=== PATIENT | female | born 1935 | race Caucasian/White ===

== ENCOUNTER 2016-03-06 12:46 | Emergency (ER) | payer MEDICARE ==
[2016-03-06] MEDS ORDERED: diazePAM 5 MG TABLET PO STA (13:56)
[2016-03-06] MEDS ORDERED: diazePAM 5 MG TABLET PO ONE (13:57)
== END 2016-03-06 14:18 | disposition home or self-care (01) ==
DX: M54.5 Low back pain (principal); G89.29 Other chronic pain; M19.90 Unspecified osteoarthritis, unspecified site; I10 Essential (primary) hypertension; Z79.82 Long term (current) use of aspirin
CPT/HCPCS: 99283; A9270

== ENCOUNTER 2016-06-02 12:51 | Outpatient (CLI) | payer MEDICARE | END 2016-06-02 12:52 | disposition home or self-care (01) | DX: E78.5 Hyperlipidemia, unspecified (principal) ==

== ENCOUNTER 2016-07-26 11:50 | Outpatient (CLI) | payer MEDICARE | END 2016-07-26 11:51 | disposition home or self-care (01) | LOC: EMS 11:50 | PROVIDERS: ATTEND Surgery | DX: R55 Syncope and collapse (principal) | CPT/HCPCS: A0425; A0427 ==

== ENCOUNTER 2016-07-26 12:27 | Emergency (ER) | payer MEDICARE ==
[2016-07-26 14:40] LABS: BASOPHILS # (AUTO) 0.1 10^3/uL (0.0-0.1); BASOPHILS % (AUTO) 0.7 %; EOSINOPHILS # (AUTO) 0.1 10^3/uL (0.0-0.7); EOSINOPHILS % (AUTO) 0.9 %; HGB - HEMOGLOBIN 14.8 g/dL (12.0-16.0); LYMPHOCYTES # (AUTO) 1.5 10^3/uL (1.5-3.5); LYMPHOCYTES % (AUTO) 16.6 %; MEAN CORPUSCULAR HEMOGLOBIN 34.7 pg (27.0-31.0); MEAN CORPUSCULAR HGB CONC 34.4 g/dL (32.0-36.0); MEAN PLATELET VOLUME 10.4 fL (7.9-10.8); MONOCYTES # (AUTO) 0.8 10^3/uL (0.0-1.0); MONOCYTES % (AUTO) 8.3 %; NEUTROPHILS # (AUTO) 6.8 10^3/uL (1.5-6.6); NEUTROPHILS % (AUTO) 73.5 %; RED BLOOD COUNT 4.26 10^6/uL (4.20-5.40); RED CELL DISTRIBUTION WIDTH 13.5 % (12.0-15.0); UNCORRECTED WHITE BLOOD COUNT 9.3 x10^3/uL; WHITE BLOOD COUNT 9.3 x10^3/uL (4.8-10.8)
[2016-07-26 14:48] LABS: CALCIUM 9.9 mg/dL (8.5-10.3); CREATININE 0.8 mg/dL (0.4-1.0); POTASSIUM 4.5 mmol/L (3.5-5.0)
--- NOTE | 2016-07-26 14:56 | ED Physician Documentation ---
History of Present Illness - Stated complaint Stated Complaint: NEAR SYNCOPE - Chief complaint Chief Complaint: Neuro - Additonal information Additional information: hx from pt 80 female hx HTN and abn EKG multiple episodes of near syncope today - she describes as less than a minute each feeling a cold wash over her, no CP or SOA or palp had sore throat and congestion yesterday better now no new meds except a benadryl yesterday Review of Systems Constitutional: denies: Fever, Chills Throat: reports: Sore throat (not now) Cardiac: denies: Chest pain / pressure, Palpitations Respiratory: denies: Dyspnea GI: denies: Abdominal Pain, Nausea, Vomiting Neurologic: reports: Near syncope. denies: Generalized weakness, Syncope, Altered mental status, Headache Endocrine: denies: Easy bruising / bleeding Immunocompromised: denies: Immunocompromised PD PAST MEDICAL HISTORY - Past Medical History Past Medical History: Yes Cardiovascular: Hypertension, High cholesterol Respiratory: None Neuro: None Endocrine/Autoimmune: None GI: None : None HEENT: None Psych: None Musculoskeletal: Osteoarthritis Derm: None - Past Surgical History Past Surgical History: Yes HEENT: Tonsil/Adenoidectomy - Present Medications Home Medications: Ambulatory Orders Medication Instructions Recorded Confirmed Aspirin [Children's Aspirin] 81 mg PO DAILY 10/26/12 07/26/16 Metoprolol Succinate 75 mg PO DAILY 01/06/15 07/26/16 Multivitamin [Multi-Vitamin Daily] 1 tab PO DAILY 01/06/15 07/26/16 Atorvastatin [Lipitor] 20 mg ORAL DAILY 01/20/15 07/26/16 - Allergies Allergies/Adverse Reactions: Allergies Allergy/AdvReac Type Severity Reaction Status Date / Time Phenothiazines Allergy Mild Respiratory Verified 01/20/15 13:50 captopril Allergy Anaphylaxis Verified 01/20/15 13:50 - Social History Does the pt smoke?: No Smoking Status: Never smoker Does the pt drink ETOH?: Yes Does the pt have substance abuse?: No - Immunizations Immunizations are current?: Yes - POLST Patient has POLST: No PD ED PE NORMAL - Vitals Vital signs reviewed: Yes - General General: Alert and oriented X 3 - HEENT HEENT: PERRL - Neck Neck: Supple, no meningeal sign - Cardiac Cardiac: RRR - Respiratory Respiratory: No respiratory distress - Abdomen Abdomen: Soft, Non tender - Derm Derm: Normal color - Extremities Extremities: No deformity - Neuro Neuro: Alert and oriented X 3, credit card interviewer 2-12 intact, No motor deficit, No sensory deficit Results - Vitals Vitals: Vital Signs - 24 hr 07/26/16 07/26/16 07/26/16 12:15 13:01 15:16 Temperature 36.3 C L Heart Rate 91 66 60 Respiratory 16 18 16 Rate Blood Pressure 187/90 H 174/83 H 166/77 H O2 Saturation 95 97 96 07/26/16 16:43 Temperature Heart Rate 64 Respiratory 16 Rate Blood Pressure 171/83 H O2 Saturation 97 Oxygen O2 Source Room air - EKG (time done) 1441 Rate: Rate (enter#) Rhythm: NSR Ischemia: Other (deep TWI precordial leads with ST depr V3-V5) Compare to prior EKG: Unchanged from prior EKG (2014 ) - Labs Labs: Laboratory Tests 07/26/16 07/26/16 07/26/16 12:50 12:50 12:50 WBC 9.3 RBC 4.26 Hgb 14.8 Hct 43.0 MCV 101.0 H MCH 34.7 H MCHC 34.4 RDW 13.5 Plt Count 234 MPV 10.4 Neut # 6.8 H Lymph # 1.5 [place] # 0.8 Eos # 0.1 Baso # 0.1 Absolute Nucleated RBC 0.00 Nucleated RBCs 0.0 Sodium 135 Potassium 4.5 Chloride 98 L Carbon Dioxide 30 Anion Gap 7.0 BUN 15 Creatinine 0.8 Estimated GFR (MDRD) 69 L Glucose 161 H Calcium 9.9 Troponin I < 0.04 TSH 07/26/16 12:50 WBC RBC Hgb Hct MCV MCH MCHC RDW Plt Count MPV Neut # Lymph # Traill # Eos # Baso # Absolute Nucleated RBC Nucleated RBCs Sodium Potassium Chloride Carbon Dioxide Anion Gap BUN Creatinine Estimated GFR (MDRD) Glucose Calcium Troponin I TSH 1.77 Departure - Departure Disposition: 01 Home, Self Care Clinical Impression: Near syncope Condition: Good Instructions: ED Near Syncope Unkn Follow-Up: Stacy Spencer PA-C [Primary Care Provider] - Comments: Your EKG is abnormal but unchanged from prior EKG. Your labs were fine You did not have any major heart rhythm abnormalities during your ER stay even though you had another episode. And now you are feeling a bit better So I think it is safe for you to go home Please follow up with your PMD for a recheck this week and to discuss getting an echocardiogram Return if worse It is probably best not to drive for the next few days Also your blood pressure was high - please follow up with your PMD
[2016-07-26 16:44] VITALS: BP 171/83
== END 2016-07-26 17:08 | disposition home or self-care (01) ==
LOC: EDUNIT# → ED 12:27
DX: R55 Syncope and collapse (principal); I10 Essential (primary) hypertension; E78.00 Pure hypercholesterolemia, unspecified; M19.90 Unspecified osteoarthritis, unspecified site; Z79.82 Long term (current) use of aspirin
CPT/HCPCS: 36415; 80048; 84443; 84484; 85025; 93005; 93010; 99284

== ENCOUNTER 2017-09-06 08:44 | Outpatient (CLI) | payer MEDICARE ==
[2017-09-06 12:07] LABS: BASOPHILS % (AUTO) 0.4 %; EOSINOPHILS # (AUTO) 0.3 10^3/uL (0.0-0.7); EOSINOPHILS % (AUTO) 3.8 %; HGB - HEMOGLOBIN 14.7 g/dL (12.0-16.0); LYMPHOCYTES # (AUTO) 2.5 10^3/uL (1.5-3.5); LYMPHOCYTES % (AUTO) 37.4 %; MEAN CORPUSCULAR HEMOGLOBIN 34.3 pg (27.0-31.0); MEAN CORPUSCULAR VOLUME 103.8 fL (81.0-99.0); MONOCYTES # (AUTO) 0.7 10^3/uL (0.0-1.0); MONOCYTES % (AUTO) 9.8 %; NEUTROPHILS # (AUTO) 3.3 10^3/uL (1.5-6.6); NEUTROPHILS % (AUTO) 48.6 %; PLT - PLATELET COUNT 252 10^3/uL (130-450); RED BLOOD COUNT 4.29 10^6/uL (4.20-5.40); RED CELL DISTRIBUTION WIDTH 13.4 % (12.0-15.0); WHITE BLOOD COUNT 6.8 x10^3/uL (4.8-10.8)
[2017-09-06 12:24] LABS: ALBUMIN 3.9 g/dL (3.2-5.5); ALBUMIN/GLOBULIN RATIO 1.3 (1.0-2.2); ALKALINE PHOSPHATASE 59 IU/L (42-121); ALT ALANINE AMINOTRANSFERASE 20 IU/L (10-60); AST ASPARTATE AMINOTRANSFERASE 28 IU/L (10-42); BILIRUBIN,TOTAL 1.2 mg/dL (0.2-1.0); BUN - BLOOD UREA NITROGEN 12 mg/dL (6-20); CALCIUM 9.4 mg/dL (8.5-10.3); CARBON DIOXIDE - CO2 32 mmol/L (21-32); CHLORIDE 96 mmol/L (101-111); CHOL/HDL RATIO 2.5 (<4.4); CHOLESTEROL 172 mg/dL; CREATININE 0.9 mg/dL (0.4-1.0); GFR - MDRD 60 (>89); GLUCOSE 120 mg/dL (70-100); HDL CHOLESTEROL 68 mg/dL; LDL CHOLESTEROL,CALCULATED 76 mg/dL; LDL/HDL RATIO 1.1 (<4.4); SODIUM 136 mmol/L (135-145); VLDL CHOLESTEROL 28 mg/dL
[2017-09-06 15:22] LABS: HB2 TOTAL 16.7 g/dL; HEMOGLOBIN A1C 0.66 g/dL; HEMOGLOBIN A1C % 5.8 % (4.6-6.2)
== END 2017-09-06 08:45 | disposition home or self-care (01) ==
LOC: LAB.F 08:44
PROVIDERS: ATTEND Physician Assistant Medical
DX: I10 Essential (primary) hypertension (principal); E78.00 Pure hypercholesterolemia, unspecified; E78.5 Hyperlipidemia, unspecified
CPT/HCPCS: 36415; 80053; 80061; 83036; 83721; 85025

== ENCOUNTER 2017-09-18 08:46 | Outpatient (CLI) | payer MEDICARE | END 2017-09-18 08:47 | disposition home or self-care (01) | LOC: LAB.F 08:46 | PROVIDERS: ATTEND Physician Assistant Medical | DX: L85.3 Xerosis cutis (principal); L65.9 Nonscarring hair loss, unspecified | CPT/HCPCS: 36415; 84443 ==

== ENCOUNTER 2017-09-25 12:48 | Outpatient (CLI) | payer MEDICARE ==
--- NOTE | 2017-09-25 15:48 | DEXA Report ---
Procedure Date: 09/25/2017 Accession Number: [id number] / [id number] Procedure: DEX - Dexa Spine and/or Hip CPT Code: FULL RESULT: EXAM: Dexa Spine and/or Hip DATE: 09/25/2017 1:37 PM CLINICAL HISTORY: ENCOUNTER FOR SCREENING FOR OSTEOPOROSIS TECHNIQUE: Dual energy x-ray absorptiometry (DXA) was performed on a In[employer] System. Regions measured are the AP Spine, femoral neck, and if needed forearm. COMPARISON: None. In accordance with the International Society for Clinical Densitometry (ISCD) guidelines, data from previous exams may be reanalyzed using current recommendations and techniques. This is done to allow a more accurate basis for comparison with the current study. FINDINGS: The data for the lumbar spine is as follows: BMD (g/cm/cm) T-SCORE Z-SCORE REGION L1 1.132 0.0 1.4 L2 1.361 1.3 2.7 L3 1.488 2.4 3.8 L4 1.525 2.7 4.1 TOTAL 1.391 1.8 3.1 NOTE: All evaluable vertebrae are used for classification The data for the hip is as follows: BMD (g/cm/cm) T-SCORE Z-SCORE REGION Neck 0.970 -0.5 1.3 TOTAL 1.090 0.7 2.3 NOTE: The femoral neck or total proximal femur, whichever is lowest, is used for classification. IMPRESSION: THE WHO CLASSIFICATION BASED ON THE INTERNATIONAL REFERENCE STANDARD IS NORMAL. THE FRACTURE RISK IS NOT INCREASED. RECOMMENDATION: Patients with diagnosis of osteoporosis or osteopenia should have regular bone mineral density assessment. For those eligible for Medicare, routine testing is allowed once every 2 years. Testing frequency can be increased for patients who have rapidly progressing disease or for those who are receiving medical therapy to restore bone mass. COMMENT: World Health Organization (WHO) definitions for osteoporosis and osteopenia: NORMAL BMD: T-score at -1.0 or higher, fracture risk is low OSTEOPENIA BMD: T-score between -1.0 and -2.5, fracture risk is increased. OSTEOPOROSIS BMD: T-score at -2.5 or lower, fracture risk is high. National Osteoporosis Foundation recommends: 1. Obtain adequate dietary calcium (at least 1200 mg per day) and vitamin D (400-800 international units per day). 2. Participate, as appropriate, in regular weightbearing and muscle-strengthening exercise. 3. Avoid tobacco use and reduce alcohol and caffeine intake. 4. For more detailed information see the website at www.NOF.org.
== END 2017-09-25 12:49 | disposition home or self-care (01) ==
LOC: DI 12:48
PROVIDERS: ATTEND Physician Assistant Medical
DX: Z13.820 Encounter for screening for osteoporosis (principal)
CPT/HCPCS: 77080

== ENCOUNTER 2019-03-18 11:28 | Outpatient (CLI) | payer MEDICARE ==
[2019-03-18 17:44] LABS: BASOPHILS % (AUTO) 0.4 %; EOSINOPHILS # (AUTO) 0.1 10^3/uL (0.0-0.7); EOSINOPHILS % (AUTO) 1.4 %; HGB - HEMOGLOBIN 15.4 g/dL (12.0-16.0); LYMPHOCYTES # (AUTO) 3.1 10^3/uL (1.5-3.5); LYMPHOCYTES % (AUTO) 34.5 %; MEAN CORPUSCULAR HEMOGLOBIN 35.2 pg (27.0-31.0); MEAN CORPUSCULAR HGB CONC 32.9 g/dL (32.0-36.0); MEAN CORPUSCULAR VOLUME 107.1 fL (81.0-99.0); MEAN PLATELET VOLUME 11.7 fL (7.9-10.8); MONOCYTES # (AUTO) 0.7 10^3/uL (0.0-1.0); MONOCYTES % (AUTO) 7.1 %; NEUTROPHILS # (AUTO) 5.1 10^3/uL (1.5-6.6); NEUTROPHILS % (AUTO) 56.2 %; PLT - PLATELET COUNT 260 10^3/uL (130-450); RED BLOOD COUNT 4.37 10^6/uL (4.20-5.40); RED CELL DISTRIBUTION WIDTH 13.5 % (12.0-15.0); WHITE BLOOD COUNT 9.1 x10^3/uL (4.8-10.8)
[2019-03-18 18:31] LABS: ALBUMIN 4.3 g/dL (3.2-5.5); ALBUMIN/GLOBULIN RATIO 1.4 (1.0-2.2); ALKALINE PHOSPHATASE 60 IU/L (42-121); ALT ALANINE AMINOTRANSFERASE 17 IU/L (10-60); AST ASPARTATE AMINOTRANSFERASE 25 IU/L (10-42); BILIRUBIN,TOTAL 1.3 mg/dL (0.2-1.0); BUN - BLOOD UREA NITROGEN 14 mg/dL (6-20); CALCIUM 9.5 mg/dL (8.5-10.3); CARBON DIOXIDE - CO2 30 mmol/L (21-32); CHLORIDE 97 mmol/L (101-111); CHOL/HDL RATIO 2.5 (<4.4); CHOLESTEROL 189 mg/dL; CREATININE 0.8 mg/dL (0.4-1.0); GFR - MDRD 69 (>89); GLUCOSE 139 mg/dL (70-100); HDL CHOLESTEROL 76 mg/dL; LDL CHOLESTEROL,CALCULATED 92 mg/dL; LDL/HDL RATIO 1.2 (<4.4); SODIUM 137 mmol/L (135-145); TOTAL PROTEIN 7.4 g/dL (6.7-8.2); VLDL CHOLESTEROL 21 mg/dL
[2019-03-18 19:41] LABS: HB2 TOTAL 15.5 g/dL; HEMOGLOBIN A1C 0.58 g/dL; HEMOGLOBIN A1C % 5.6 % (4.6-6.2)
== END 2019-03-18 11:29 | disposition home or self-care (01) ==
LOC: LAB.S 11:28
PROVIDERS: ATTEND Physician Assistant Medical
DX: I10 Essential (primary) hypertension (principal); E78.5 Hyperlipidemia, unspecified; R73.01 Impaired fasting glucose
CPT/HCPCS: 36415; 80053; 80061; 83036; 83721; 85025

== ENCOUNTER 2021-03-11 13:33 | Outpatient (CLI) | payer MEDICARE | END 2021-03-11 13:34 | disposition critical access hospital (66) | LOC: EMS 13:33 | DX: R53.1 Weakness (principal); K59.00 Constipation, unspecified | CPT/HCPCS: A0425; A0429 ==

== ENCOUNTER 2021-03-11 14:41 | Emergency (ER) | payer MEDICARE ==
[2021-03-11 15:07] LABS: BASOPHILS % (AUTO) 0.3 %; EOSINOPHILS # (AUTO) 0.1 10^3/uL (0.0-0.7); EOSINOPHILS % (AUTO) 0.7 %; HCT - HEMATOCRIT 35.4 % (37.0-47.0); HGB - HEMOGLOBIN 11.6 g/dL (12.0-16.0); LYMPHOCYTES # (AUTO) 2.1 10^3/uL (1.5-3.5); LYMPHOCYTES % (AUTO) 18.5 %; MEAN CORPUSCULAR HEMOGLOBIN 30.8 pg (27.0-31.0); MEAN CORPUSCULAR HGB CONC 32.8 g/dL (32.0-36.0); MEAN CORPUSCULAR VOLUME 93.9 fL (81.0-99.0); MEAN PLATELET VOLUME 9.7 fL (7.9-10.8); MONOCYTES # (AUTO) 1.3 10^3/uL (0.0-1.0); MONOCYTES % (AUTO) 11.4 %; NEUTROPHILS # (AUTO) 7.9 10^3/uL (1.5-6.6); NEUTROPHILS % (AUTO) 68.8 %; PLT - PLATELET COUNT 565 10^3/uL (130-450); RED BLOOD COUNT 3.77 10^6/uL (4.20-5.40); RED CELL DISTRIBUTION WIDTH 17.7 % (12.0-15.0); WHITE BLOOD COUNT 11.5 x10^3/uL (4.8-10.8)
[2021-03-11 15:19] LABS: ALBUMIN 2.9 g/dL (3.2-5.5); ALBUMIN/GLOBULIN RATIO 0.7 (1.0-2.2); BILIRUBIN,TOTAL 0.5 mg/dL (0.2-1.0); CALCIUM 9.5 mg/dL (8.5-10.3); CREATININE 0.7 mg/dL (0.4-1.0); POTASSIUM 4.2 mmol/L (3.5-5.0)
--- NOTE | 2021-03-11 15:48 | ED Physician Documentation ---
History of Present Illness - Stated complaint Stated Complaint: WEAKNESS - Chief complaint Chief Complaint: Abd Pain - Additonal information Additional information: 85-year-old female presents to the emergency department for evaluation of pr ogressive weakness that has been occurring over the last month. Patient reports that after ambulating even short distances she feels very weak in her arms and legs. She denies any exertional chest pain but does feel short of breath after walking. There has been no fainting episodes no leg swelling. She denies any dysuria urgency or frequency. No cough or fevers. Fully vaccinated for COVID-19. Past medical history is most significant for hypertension for which she takes metoprolol as well as atorvastatin and a daily aspirin. Review of Systems Constitutional: denies: Fever, Chills Nose: reports: Reviewed and negative Throat: reports: Reviewed and negative Cardiac: reports: Reviewed and negative Respiratory: reports: Dyspnea. denies: Cough GI: reports: Reviewed and negative : reports: Reviewed and negative Skin: reports: Reviewed and negative Musculoskeletal: reports: Reviewed and negative PD PAST MEDICAL HISTORY - Past Medical History Cardiovascular: Hypertension, High cholesterol Respiratory: None Endocrine/Autoimmune: None GI: None : None HEENT: None Psych: None Musculoskeletal: Osteoarthritis Derm: None - Past Surgical History Past Surgical History: Yes HEENT: Tonsil/Adenoidectomy - Present Medications Home Medications: Ambulatory Orders Medication Instructions Recorded Confirmed Aspirin [Children's Aspirin] 81 mg PO DAILY 10/26/12 07/26/16 Metoprolol Succinate 75 mg PO DAILY 01/06/15 07/26/16 Multivitamin [Multi-Vitamin Daily] 1 tab PO DAILY 01/06/15 07/26/16 Atorvastatin [Lipitor] 20 mg ORAL DAILY 01/20/15 07/26/16 - Allergies Allergies/Adverse Reactions: Allergies Allergy/AdvReac Type Severity Reaction Status Date / Time Phenothiazines Allergy Mild Respiratory Verified 01/20/15 13:50 captopril Allergy Anaphylaxis Verified 01/20/15 13:50 - Social History Does the pt smoke?: No Smoking Status: Never smoker Does the pt drink ETOH?: Yes Does the pt have substance abuse?: No - Immunizations Immunizations are current?: Yes - POLST Patient has POLST: No PD ED PE NORMAL - General General: Alert and oriented X 3, No acute distress - HEENT HEENT: PERRL - Neck Neck: Supple, no meningeal sign, No adenopathy - Cardiac Cardiac: RRR, No murmur - Respiratory Respiratory: No respiratory distress, Clear bilaterally - Abdomen Abdomen: Normal bowel sounds, Soft, Non tender - Back Back: No CVA TTP, No spinal TTP - Derm Derm: Normal color, Warm and dry - Extremities Extremities: No deformity - Neuro Neuro: Alert and oriented X 3, parquet floor layer 2-12 intact, No motor deficit, No sensory deficit, Normal speech, Other (Motor strength 5/5 in bilateral lower extremities against resistance. Motor strength 5 of 5 in bilateral upper extremities against resistance.) Eye Opening: Spontaneous Motor: Obeys Commands Verbal: Oriented GCS Score: 15 - Psych Psych: Normal mood Results - Vitals Vitals: Vital Signs - 24 hr 03/11/21 03/11/21 15:04 17:06 Temperature 36.4 C L Heart Rate 75 74 Respiratory 22 21 Rate Blood Pressure 147/95 H 173/81 H O2 Saturation 96 96 Oxygen O2 Source Room air - EKG (time done) 1456 Rate: Rate (enter#) (74) Rhythm: NSR [place]: Normal Intervals: Normal NE QRS: Normal Ischemia: Q waves (V1V2 unchanged), T wave inversion (V2-V6b UNCHANED) Compare to prior EKG: Unchanged from prior EKG Computer interpretation: Agree with computer - Labs Labs: Laboratory Tests 03/11/21 03/11/21 03/11/21 14:58 14:58 14:58 WBC 11.5 H RBC 3.77 L Hgb 11.6 L Hct 35.4 L MCV 93.9 MCH 30.8 MCHC 32.8 RDW 17.7 H Plt Count 565 H MPV 9.7 Neut # (Auto) 7.9 H Lymph # (Auto) 2.1 Ness # (Auto) 1.3 H Eos # (Auto) 0.1 Baso # (Auto) 0.0 Absolute Nucleated RBC 0.00 Nucleated RBC % 0.0 Sodium 131 L Potassium 4.2 Chloride 91 L Carbon Dioxide 28 Anion Gap 12.0 BUN 12 Creatinine 0.7 Estimated GFR (MDRD) 80 L Glucose 140 H Calcium 9.5 Total Bilirubin 0.5 AST 116 H ALT 61 H Alkaline Phosphatase 585 H Troponin I High Sens 13.5 B-Natriuretic Peptide Total Protein 7.0 Albumin 2.9 L Globulin 4.1 Albumin/Globulin Ratio 0.7 L Lipase 39 Urine Color Urine Clarity Urine pH Ur Specific [place] Urine Protein Urine Glucose (UA) Urine Ketones Urine Occult Blood Urine Nitrite Urine Bilirubin Urine Urobilinogen Ur Leukocyte Esterase Ur Microscopic Review Urine Culture Comments 03/11/21 03/11/21 14:58 17:20 WBC RBC Hgb Hct MCV MCH MCHC RDW Plt Count MPV Neut # (Auto) Lymph # (Auto) Ness # (Auto) Eos # (Auto) Baso # (Auto) Absolute Nucleated RBC Nucleated RBC % Sodium Potassium Chloride Carbon Dioxide Anion Gap BUN Creatinine Estimated GFR (MDRD) Glucose Calcium Total Bilirubin AST ALT Alkaline Phosphatase Troponin I High Sens B-Natriuretic Peptide 297 H Total Protein Albumin Globulin Albumin/Globulin Ratio Lipase Urine Color YELLOW Urine Clarity CLEAR Urine pH 6.0 Ur Specific [place] <=1.005 Urine Protein NEGATIVE Urine Glucose (UA) NEGATIVE Urine Ketones NEGATIVE Urine Occult Blood NEGATIVE Urine Nitrite NEGATIVE Urine Bilirubin NEGATIVE Urine Urobilinogen 0.2 (NORMAL) Ur Leukocyte Esterase NEGATIVE Ur Microscopic Review NOT INDICATED Urine Culture Comments NOT INDICATED - Rads (name of study) CXR Radiology: Final report received (No acute cardiopulmonary process) CT abd/pelvis Radiology: Final report received (Hepatomegaly with extensive hypodense lesions scattered throughout the parenchyma suggestive of extensive liver metastasis. No bowel obstruction. At least 2 solid appearing nodule seen in bilateral lung bases concerning for pulmonary metastatic disease) PD MEDICAL DECISION MAKING - ED course Complexity details: reviewed results, re-evaluated patient, considered differential, d/w patient ED course: 85-year-old female presents emergency department for evaluation of progressive weakness as well as some dyspnea especially after ambulating. Screening labs today were most significant for elevated liver function tests new from her known baseline of normal. Chest x-ray was without acute finding but a CT of the abdomen did show likely pulmonary metastasis to the liver. There is fairly extensive disease burden. This finding was discussed with the patient at the bedside unfortunately she will require referral to oncology for further evaluation and management. Emergent worrisome return precautions were discussed. Departure - Departure Disposition: 01 Home, Self Care Clinical Impression: Liver metastases, Generalized weakness Pulmonary metastasis Qualifiers: Laterality: bilateral Qualified Code(s): C78.01 - Secondary malignant neoplasm of right lung; C78.02 - Secondary malignant neoplasm of left lung Condition: Stable Record reviewed to determine appropriate education?: Yes Follow-Up: Galindo Taylor MD [Credentialed Staff Provider] - Comments: Ann you are seen in the emergency department today for feeling generally weak as well as some weight loss. Unfortunately as we discussed at the bedside your labs and imaging today show that you have significant cancer. 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 It is very important that your primary doctor make a referral for you to oncology. There are good treatment options available for people that do have cancer including metastatic cancer like yours so I do not want you to lose hope until you speak with the oncologist. It is going to be important that you see an oncologist within the next few weeks. No new medications needed to be added today. It is important that you stay well-hydrated. If you have any fainting episodes, black or bloody stools, develop any fevers then you are to return immediately to the ER for a second look. I wish you well in your journey.
--- NOTE | 2021-03-11 16:17 | XRAY Report ---
PROCEDURE: Chest 1 View X-Ray INDICATIONS: chest pain TECHNIQUE: One view of the chest was acquired. COMPARISON: 08/27/2012. FINDINGS: Surgical changes and devices: None. Lungs and pleura: No pleural effusions or pneumothorax. Lungs are clear. Elevated right hemidiaphra gm is stable compared to the prior exam. Previously identified opacity in the posterior aspect of the right lung bases is not identified by single AP view of the chest. Mediastinum: Mediastinal contours appear normal. Heart size is normal. Bones and chest wall: No suspicious bony lesions. Overlying soft tissues appear unremarkable. IMPRESSION: No acute cardiopulmonary disease process. Reviewed by: Toña Palafox MD, PhD on 03/11/2021 4:15 PM PST Approved by: Toña Palafox MD, PhD on 03/11/2021 4:15 PM PST Station ID: [id number]
[2021-03-11] MEDS ORDERED: iohexoL-300 100 ML VIAL ONE (16:32)
[2021-03-11 17:38] LABS: BILIRUBIN,URINE NEGATIVE (NEGATIVE); GLUCOSE, URINE (UA) NEGATIVE (NEGATIVE); KETONES,URINE (UA) NEGATIVE (NEGATIVE); LEUKOCYTE ESTERASE, URINE NEGATIVE (NEGATIVE); NITRITE,URINE NEGATIVE (NEGATIVE); OCCULT BLOOD,URINE NEGATIVE (NEGATIVE); PROTEIN,URINE NEGATIVE (NEGATIVE); UROBILINOGEN,URINE 0.2 (NORMAL) E.U./dL (NORMAL)
[2021-03-11 17:51] LABS: CLARITY,URINE CLEAR (CLEAR)
--- NOTE | 2021-03-11 19:12 | CT Report ---
PROCEDURE: Abdomen/Pelvis W INDICATIONS: elevated lft's CONTRAST: IV CONTRAST: Isovue 300 ml: 100 PO CONTRAST: *NO PO CONTRAST TECHNIQUE: After the administration of IV contrast, 5 mm thick sections acquired from the diaphragms to the symp hysis. 5 mm thick coronal and sagittal reformats were acquired. For radiation dose reduction, the f ollowing was used: automated exposure control, adjustment of mA and/or kV according to patient size. COMPARISON: CT angiogram of abdomen dated 09/20/2012. FINDINGS: Image quality: Excellent. ABDOMEN: Lung bases: Bibasilar scarring/atelectasis is seen with a 7 mm solid nodule seen in anterior aspect o f left lower lobe near left lung base not seen on 2013 study. Series 13 image 32. Pleural based nodul e in posterior medial right lung base is also seen measures 1 cm in size series 13 image 24. Heart si ze is normal. Solid organs: Liver is enlarged. Numerous hypodense lesions are seen scattered throughout both right and left hepat ic lobe with the largest right hepatic lobe lesion measures 3 x 3 cm in size in right hepatic dome se nabor 11 image 12 and largest left hepatic lobe lesion measures up to 6.6 x 5.7 cm in size occupying n early entire lateral segment of left hepatic lobe series 10 image 22. Finding is consistent with exte nsive liver metastatic disease. Gallbladder is within normal limits. Spleen show normal size and enhancement. Biliary system is non dilated. Pancreas enhances normally. No adrenal nodules. Kidneys demonstrate normal size and enhan cement, without hydronephrosis. Peritoneum and bowel: There is no evidence of bowel obstruction. No gross gastric or small bowel wall thickening. Extensive sigmoid diverticulosis is seen. There is suggestion of diffuse proximal to mid sigmoid colon wall thickening and narrowing of the lumen. No significant mesenteric fat stranding. N o free fluid or free air. No abscess collection. No other area of abnormal bowel wall thickening is s een. Nodes and vessels: No retroperitoneal or mesenteric adenopathy by size criteria. Aorta and inferior vena cava are normal in size. Miscellaneous: No ventral hernias. PELVIS: Genitourinary: Bladder wall thickness is normal. Uterus and bilateral adnexa show no gross abnormal ity. Miscellaneous: No inguinal hernias or adenopathy. Bones: No suspicious bony lesions. No vertebral body compression fractures. Degenerative disc dise ase throughout lower thoracic and lumbar spine is seen. IMPRESSION: 1. Hepatomegaly with extensive hypodense lesions scattered throughout liver parenchyma suggestive of extensive liver metastases. 2. There is no bowel obstruction. Sigmoid diverticulosis with extensive proximal to mid sigmoid colon wall thickening and narrowing of the lumen. Finding may represent sequela from prior episodes of div erticulitis. Underlying circumferential sigmoid colon wall mass cannot be excluded. 3. At least 2 solid appearing nodule seen in bilateral lung bases as described above concerning for p ulmonary metastatic disease. Reviewed by: Frank Pablo MD on 03/11/2021 7:10 PM PST Approved by: Frank Pablo MD on 03/11/2021 7:10 PM PST Station ID: [id number]
[2021-03-11 19:40] VITALS: BP 154/103
[2021-03-11] MEDS ORDERED: iohexoL-300 100 ML VIAL IVP ONE (20:15)
== END 2021-03-11 19:54 | disposition home or self-care (01) ==
LOC: EDUNIT# → ED 14:41
DX: C78.01 Secondary malignant neoplasm of right lung (principal); C78.02 Secondary malignant neoplasm of left lung; C78.7 Secondary malignant neoplasm of liver and intrahepatic bile duct; I10 Essential (primary) hypertension
CPT/HCPCS: 36415; 71045; 74177; 80053; 81003; 83690; 83880; 84484; 85025; 99284; Q9967; 81001; 87086; 93005

== ENCOUNTER 2021-04-20 14:09 | Outpatient (CLI) | payer MEDICARE | END 2021-04-20 14:10 | disposition critical access hospital (66) | LOC: EMS 14:09 | DX: R53.1 Weakness (principal) | CPT/HCPCS: A0425; A0427 ==

== ENCOUNTER 2021-04-20 14:43 | Emergency (ER) | payer MEDICARE ==
--- NOTE | 2021-04-20 15:03 | ED Physician Documentation ---
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 The patient reports that she has had very little appetite and has eaten and drank very little. She is having difficulty getting out of bed without significant assistance. I saw her recently for abdominal pain and the diagnosis of liver metastasis was made. She has subsequently followed up with Dr. Taylor with hematology oncology and has had a PET scan completed at an outside facility. Due to progressive weakness she was advised to come to the ER. She denies any fevers, nausea or vomiting. Denies any dysuria chest pain or shortness of air. States that she just feels very weak. She does live at home with her and 3 sons. She states that she is not able to get out of bed without significant help. Review of Systems Constitutional: denies: Fever, Chills Eyes: reports: Reviewed and negative Ears: reports: Reviewed and negative Nose: reports: Reviewed and negative Throat: reports: Reviewed and negative Cardiac: reports: Reviewed and negative Respiratory: reports: Reviewed and negative GI: reports: Abdominal Pain. denies: Nausea, Vomiting, Constipation, Diarrhea : reports: Reviewed and negative Skin: reports: Reviewed and negative Musculoskeletal: reports: Reviewed and negative Neurologic: reports: Generalized weakness. denies: Focal weakness, Numbness, Difficulty speaking, Syncope, Seizure, Headache Psychiatric: reports: Reviewed and negative PD PAST MEDICAL HISTORY - Past Medical History Cardiovascular: Hypertension, High cholesterol Respiratory: None Endocrine/Autoimmune: None GI: None : None HEENT: None Psych: None Musculoskeletal: Osteoarthritis Derm: None - Past Surgical History Past Surgical History: Yes HEENT: Tonsil/Adenoidectomy - Present Medications Home Medications: Ambulatory Orders Medication Instructions Recorded Confirmed Aspirin [Children's Aspirin] 81 mg PO DAILY 10/26/12 07/26/16 Metoprolol Succinate 75 mg PO DAILY 01/06/15 07/26/16 Multivitamin [Multi-Vitamin Daily] 1 tab PO DAILY 01/06/15 07/26/16 Atorvastatin [Lipitor] 20 mg ORAL DAILY 01/20/15 07/26/16 Gabapentin [Neurontin] 100 mg PO BID 04/20/21 04/20/21 traZODone [Desyrel] 50 mg PO DAILY 04/20/21 04/20/21 - Allergies Allergies/Adverse Reactions: Allergies Allergy/AdvReac Type Severity Reaction Status Date / Time Phenothiazines Allergy Mild Respiratory Verified 04/20/21 14:54 captopril Allergy Anaphylaxis Verified 04/20/21 14:54 - Social History Does the pt smoke?: No Smoking Status: Never smoker Does the pt drink ETOH?: Yes Does the pt have substance abuse?: No - Immunizations Immunizations are current?: Yes - POLST Patient has POLST: No PD ED PE EXPANDED - General General: Alert, Disheveled, poorly kept (Geriatric ill appearance) - Cardiac Cardiac: Regular Rate, Radial strong equal, Pedal strong equal, Cap refill < 2 sec. No: Murmur Present - Respiratory Respiratory: Clear to ausultation yojana. No: Distress, Labored - Abdomen Abdomen: Normal Bowel sounds, Tender to palpation (Some tenderness to the upper abdomen without guarding or rebound most of the tenderness is in the right upper quadrant.) - Back Back: Normal exam - Extremities Extremities: Normal, Pedal Pulses Present. No: Deformity, Tenderness, Pedal edema bilateral, Right calf TTP/cord, Left calf TTP/cord - Neuro Neuro: Alert and Oriented X 3, CNII-XII intact - GCS Eye Opening: Spontaneous Motor: Obeys Commands Verbal: Oriented Total: 15 Results - Vitals Vitals: Vital Signs - 24 hr 04/20/21 04/20/21 14:50 18:35 Temperature 35.7 C L Heart Rate 74 71 Respiratory 20 17 Rate Blood Pressure 128/88 H 142/65 H O2 Saturation 100 97 Oxygen O2 Source Room air - Labs Labs: Laboratory Tests 04/20/21 04/20/21 04/20/21 15:03 15:03 16:49 WBC 10.4 RBC 3.61 L Hgb 11.3 L Hct 35.5 L MCV 98.3 MCH 31.3 H MCHC 31.8 L RDW 19.2 H Plt Count 631 H MPV 9.5 Neut # (Auto) 7.6 H Lymph # (Auto) 1.7 Ray # (Auto) 0.9 Eos # (Auto) 0.0 Baso # (Auto) 0.1 Absolute Nucleated RBC 0.00 Nucleated RBC % 0.0 Manual Slide Review Indicated Platelet Estimate INCREASED (>450,000) Platelet Morphology PLATELET CLUMPING RBC Morph Micro Appear 2+ ANISOCYTOSIS Sodium 130 L Potassium 4.1 Chloride 88 L Carbon Dioxide 23 Anion Gap 19.0 H BUN 11 Creatinine 0.8 Estimated GFR (MDRD) 69 L Glucose 128 H Calcium 9.5 Total Bilirubin 1.6 H AST 88 H ALT 22 Alkaline Phosphatase 844 H Total Protein 6.7 Albumin 2.5 L Globulin 4.2 Albumin/Globulin Ratio 0.6 L Lipase 56 H Urine Color YELLOW Urine Clarity CLEAR Urine pH 6.0 Ur Specific [place] >=1.030 H Urine Protein TRACE Urine Glucose (UA) NEGATIVE Urine Ketones >=80 H Urine Occult Blood NEGATIVE Urine Nitrite NEGATIVE Urine Bilirubin NEGATIVE Urine Urobilinogen 1 (NORMAL) Ur Leukocyte Esterase NEGATIVE Ur Microscopic Review NOT INDICATED Urine Culture Comments NOT INDICATED PD MEDICAL DECISION MAKING - ED course Complexity details: reviewed results, re-evaluated patient, considered differential, d/w patient, d/w family ED course: 85 year old female presents to the ED For evaluation of progressive weakness. This is in the setting of known colon mass with metastasis to the liver. She has been seen by hematology oncology Dr. Taylor. Patient reports very poor oral intake over the last 5 days with progressive weakness limiting her ability to get out of bed without significant assistance. She no longer feels that she can safely return home as her is elderly and not able to help care for her. Patient presents elderly and ill-appearing however she has unremarkable vital signs. No fevers, tachycardia or hypotension. Screening labs were completed they do show a mild anemia. She is also with some mild electrolyte derangement notably sodium of 130. She has preserved renal function. She does have some abnormal liver function test but this is expected in the setting of liver meta stasis. Her chest x-ray without acute focal opacity. The patient was given a liter of IV fluids and did feel somewhat improved. We then attempted to ambulate her at the bedside but she required 2 person assistance and could not take a step thus she was returned to bed. I discussed the possibility of admission for this patient to the hospital with our hospitalist Dr. Abdul. Unfortunately patient does not present with an admittable diagnosis. She is not significantly hyponatremic and generalized weakness would not guarantee her a bed. I then reached out to her oncologist Dr. Bryan. He was out for the day but I did speak with Mick Young harm reduction worker. He was able to review the [facility] chart notes. He indicates to me that the patient has advanced disease and is not doing well at home. They have made a formal referral to [facility] for the patient. Due to the late hour the day social work is not available. I then spoke on the phone with the patient's Casey. We did have two lengthy phone calls. He is quite upset that the patient will not be admitted to the hospital. He reports that he was told by the oncologist that she would be admitted. We discussed that there is no admittable diagnosis and because she is too weak to return home she will remain in the emergency department overnight until she can be seen by social work in the morning. They may be able to help arrange further care with hospice or arrange for care of the patient at home with home health. Pt will be signed out to my night time colleague Dr. Adamson pending SW in am. I have ordered repeat labs for am as well as maintenance fluids Departure - Departure Clinical Impression: Hyponatremia, Generalized weakness, Cancer, metastatic to liver Colon cancer Qualifiers: Colon location: unspecified part of colon Qualified Code(s): C18.9 - Malignant neoplasm of colon, unspecified
[2021-04-20] MEDS ORDERED: SODIUM CHLORIDE 0.9% 1,000 ML IV STA ×2 (15:04→18:46)
[2021-04-20 15:16] LABS: BASOPHILS # (AUTO) 0.1 10^3/uL (0.0-0.1); BASOPHILS % (AUTO) 0.5 %; EOSINOPHILS % (AUTO) 0.4 %; HCT - HEMATOCRIT 35.5 % (37.0-47.0); HGB - HEMOGLOBIN 11.3 g/dL (12.0-16.0); LYMPHOCYTES # (AUTO) 1.7 10^3/uL (1.5-3.5); LYMPHOCYTES % (AUTO) 16.6 %; MEAN CORPUSCULAR HEMOGLOBIN 31.3 pg (27.0-31.0); MEAN CORPUSCULAR HGB CONC 31.8 g/dL (32.0-36.0); MEAN CORPUSCULAR VOLUME 98.3 fL (81.0-99.0); MEAN PLATELET VOLUME 9.5 fL (7.9-10.8); MONOCYTES # (AUTO) 0.9 10^3/uL (0.0-1.0); MONOCYTES % (AUTO) 8.6 %; NEUTROPHILS # (AUTO) 7.6 10^3/uL (1.5-6.6); NEUTROPHILS % (AUTO) 73.1 %; PLT - PLATELET COUNT 631 10^3/uL (130-450); RED BLOOD COUNT 3.61 10^6/uL (4.20-5.40); RED CELL DISTRIBUTION WIDTH 19.2 % (12.0-15.0); WHITE BLOOD COUNT 10.4 x10^3/uL (4.8-10.8)
--- NOTE | 2021-04-20 15:21 | XRAY Report ---
PROCEDURE: Chest 1 View X-Ray INDICATIONS: chest pain TECHNIQUE: One view of the chest was acquired. COMPARISON: Chest x-ray 03/11/2021 FINDINGS: Surgical changes and devices: None. Lungs and pleura: No pleural effusions or pneumothorax. Lungs are clear. Mediastinum: Mediastinal contours appear normal. Heart size is normal. Unchanged elevation of the right hemidiaphragm. Bones and chest wall: No suspicious bony lesions. Overlying soft tissues appear unremarkable. IMPRESSION: No acute pulmonary process. Reviewed by: Bethany German MD on 04/20/2021 3:19 PM PST Approved by: Bethany German MD on 04/20/2021 3:19 PM PST Station ID: [id number]
[2021-04-20 15:22] LABS: SLIDE REVIEW? Indicated
[2021-04-20 15:31] LABS: ALBUMIN 2.5 g/dL (3.2-5.5); ALBUMIN/GLOBULIN RATIO 0.6 (1.0-2.2); BILIRUBIN,TOTAL 1.6 mg/dL (0.2-1.0); CALCIUM 9.5 mg/dL (8.5-10.3); CREATININE 0.8 mg/dL (0.4-1.0); POTASSIUM 4.1 mmol/L (3.5-5.0); TOTAL PROTEIN 6.7 g/dL (6.7-8.2)
[2021-04-20 16:07] LABS: PLATELET ESTIMATE, MANUAL INCREASED (>450,000) (NORMAL); PLATELET MORPHOLOGY PLATELET CLUMPING (NORMAL); RBC MORPHOLOGY (MULTIPLE) 2+ ANISOCYTOSIS (NORMAL)
[2021-04-20 17:01] LABS: GLUCOSE, URINE (UA) NEGATIVE (NEGATIVE); KETONES,URINE (UA) >=80 mg/dL (NEGATIVE); LEUKOCYTE ESTERASE, URINE NEGATIVE (NEGATIVE); NITRITE,URINE NEGATIVE (NEGATIVE); OCCULT BLOOD,URINE NEGATIVE (NEGATIVE); PROTEIN,URINE TRACE mg/dL (NEGATIVE); UROBILINOGEN,URINE 1 (NORMAL) E.U./dL (NORMAL)
[2021-04-20 17:09] LABS: BILIRUBIN,URINE NEGATIVE (NEGATIVE); CLARITY,URINE CLEAR (CLEAR); ICTOTEST,URINE NEGATIVE
[2021-04-21] MEDS ORDERED: SODIUM CHLORIDE 0.9% 1,000 ML IV STA (01:41)
--- NOTE | 2021-04-21 10:29 | ED Physician Documentation ---
ED Addendum - Addendum Addendum: 04/21/21 10:28 Per report patient with worsening symptoms related to metastatic cancer. She was boarding in the emergency department pending potential placement and social work evaluation. She was seen by social work. Patient and family wanting to go home now to enroll in hospice. Disposition discharged home for expectant management and likely hospice enrollment. Condition: Stable 04/21/21 12:06 Her son did come pick her up and I discussed with him and the patient at bedside . The patient wanted to go home. The son voiced his concerns about how we were not admitting her. I offered to represent the patient to the hospitalist with his concerns, but the patient at this point was persistent in her wishes that she wanted to go home. She did want a 3rd L of IV fluids before discharge and this was ordered and I will follow up with the outreach and education social worker to see if there is anything else we can do to help them keep her comfortable at home. 04/21/21 13:35 She did want something for anxiety at home and prescription for Ativan 1 mg p.o. 3 times daily as needed anxiety #20, no refills were sent to [facility] in [place].
[2021-04-21 11:32] VITALS: BP 146/66
[2021-04-21] MEDS ORDERED: LACTATED RINGERS 1,000 ML IV STA (12:04)
== END 2021-04-21 13:32 | disposition home or self-care (01) ==
LOC: EDUNIT# → ED 14:43
DX: C18.9 Malignant neoplasm of colon, unspecified (principal); C78.7 Secondary malignant neoplasm of liver and intrahepatic bile duct; E87.1 Hypo-osmolality and hyponatremia; I10 Essential (primary) hypertension
CPT/HCPCS: 36415; 51798; 71045; 80053; 81003; 83690; 85025; 96360; 96361; 99283; 99284; J7120; 81001; 87086

== ENCOUNTER 2021-04-21 13:29 | Outpatient (CLI) | payer MEDICARE | END 2021-04-21 13:30 | disposition hospice, home (50) | LOC: EMS 13:29 | PROVIDERS: ATTEND Emergency Medicine | DX: R53.1 Weakness (principal); Z51.5 Encounter for palliative care; C18.9 Malignant neoplasm of colon, unspecified; C78.7 Secondary malignant neoplasm of liver and intrahepatic bile duct; Z74.01 Bed confinement status | CPT/HCPCS: A0425; A0428 ==